=== PATIENT | female | born 1955 | race Caucasian/White ===

== ENCOUNTER 2024-05-16 10:52 | Outpatient (RCR) | payer MEDICARE, BC, SELFPAY | END 2024-05-16 23:59 | disposition home or self-care (01) | LOC: RPT 10:52 | PROVIDERS: ATTENDING PHYSICIAN Student in an Organized Health Care Education/Training Program; FAMILY PHYSICIAN Internal Medicine | DX: M25.571 Pain in right ankle and joints of right foot (principal); M25.572 Pain in left ankle and joints of left foot; Z73.6 Limitation of activities due to disability | CPT/HCPCS: 97110; 97140; 97162; 97760 ==

== ENCOUNTER → 2024-06-17 07:32 | Outpatient (REF) | payer MEDICARE, BC, SELFPAY | LOC: EMG 07:32 | PROVIDERS: ATTENDING PHYSICIAN Student in an Organized Health Care Education/Training Program; FAMILY PHYSICIAN Internal Medicine | DX: R20.0 Anesthesia of skin (principal) | CPT/HCPCS: 95886; 95911 ==

== ENCOUNTER → 2024-11-28 19:30 | Outpatient (REF) | payer MEDICARE, BC, SELFPAY | LOC: WDC 19:30 | PROVIDERS: ATTENDING PHYSICIAN Internal Medicine | DX: Z12.31 Encounter for screening mammogram for malignant neoplasm of breast (principal) | CPT/HCPCS: 77063; 77067 ==

== ENCOUNTER → 2025-01-29 13:30 | Outpatient (REF) | payer MEDICARE, BC, SELFPAY | LOC: HWRAD 13:30 | PROVIDERS: ATTENDING PHYSICIAN Internal Medicine | DX: M81.0 Age-related osteoporosis without current pathological fracture (principal) | CPT/HCPCS: 77080 ==

== ENCOUNTER → 2025-09-02 14:20 | Outpatient (REF) | payer MEDICARE, BC, SELFPAY | LOC: RAD 14:20 | PROVIDERS: ATTENDING PHYSICIAN Nurse Practitioner Adult Health; FAMILY PHYSICIAN Internal Medicine | DX: M54.16 Radiculopathy, lumbar region (principal) | CPT/HCPCS: 72110 ==